=== PATIENT | male | born 1995 | race Hispanic/Latino ===

== ENCOUNTER 2020-04-06 12:13 | Emergency (ER) | payer MEDICAID ==
--- NOTE | 2020-04-06 12:53 | Emergency Department Report ---
ED Psych HPI - General Chief Complaint: Psych Stated Complaint: PYSCH EVALUATION Time Seen by Provider: 04/06/20 12:34 Source: EMS Mode of arrival: Stretcher - History of Present Illness Initial Comments: 25-year-old male states, "I just need to have my medicines changed". This is a patient coming from a skilled nursing with a bipolar disorder and "intermittent explosive disorder". He states that he was losing his temper today. However he denies any property or personal injury. He stated that he did not want to hurt himself or others. He thinks that his Risperdal is not agreeing with him. I mentioned Seroquel to him. He stated that he thinks that that medicine might work for him because he heard it works well for others. He states he has not been on this medicine prior. He does have a local PMD and psychiatrist. He presents with his medication administration record. The patient states that he did get his morning medicines. He does not report any precipitating event. He does not state that he is dissatisfied with his living situation. He has not suffering from hallucinosis or delusional thinking. He is cooperative with this provider on my encounter. MD Complaint: other Associated Psychiatric Symptoms: none History of same: Yes Quality: intermittent Improves With: none Worsens With: none Associated Symptoms: denies other symptoms Treatments Prior to Arrival: none ED Review of Systems ROS: Stated complaint: PYSCH EVALUATION Other details as noted in HPI Constitutional: denies: chills, fever Eyes: denies: eye pain, eye discharge, vision change ENT: denies: ear pain, throat pain Respiratory: denies: cough, shortness of breath, wheezing Cardiovascular: denies: chest pain, palpitations Endocrine: no symptoms reported Gastrointestinal: denies: abdominal pain, nausea, diarrhea Genitourinary: denies: urgency, dysuria Musculoskeletal: denies: back pain, joint swelling, arthralgia Skin: denies: rash, lesions Neurological: denies: headache, weakness, paresthesias Psychiatric: as per HPI. denies: anxiety, depression, auditory hallucinations, visual hallucinations, homicidal thoughts, suicidal thoughts Hematological/Lymphatic: denies: easy bleeding, easy bruising ED Past Medical Hx - Past Medical History Hx Psychiatric Treatment: Yes - Social History Substance Use Type: None ED Physical Exam - General Limitations: No Limitations General appearance: alert, in no apparent distress - Head Head exam: Present: atraumatic, normocephalic - Eye Eye exam: Present: other (O. S. Aphakic) - ENT ENT exam: Present: normal exam, mucous membranes moist - Neck Neck exam: Present: normal inspection. Absent: tenderness, meningismus - Respiratory Respiratory exam: Present: normal lung sounds bilaterally. Absent: respiratory distress - Cardiovascular Cardiovascular Exam: Present: regular rate, normal rhythm. Absent: systolic murmur, diastolic murmur, rubs, gallop - GI/Abdominal GI/Abdominal exam: Present: soft, normal bowel sounds. Absent: distended, tenderness, guarding, rebound - Rectal Rectal exam: Present: deferred - Extremities Exam Extremities exam: Present: normal inspection - Back Exam Back exam: Present: normal inspection - Neurological Exam Neurological exam: Present: alert, oriented X3, CN II-XII intact. Absent: motor sensory deficit - Psychiatric Psychiatric exam: Present: normal mood, flat affect - Skin Skin exam: Present: warm, dry, intact, normal color. Absent: rash ED Course Vital Signs 04/06/20 12:26 Temperature 97.8 F Pulse Rate 74 Respiratory 18 Rate Blood Pressure 132/72 [Right] O2 Sat by Pulse 100 Oximetry - Reevaluation(s) Reevaluation #1: I have asked the nursing staff to verify that no untoward behavior occurred in the skilled nursing. I do not think it is a problem with stopping his Respinol and beginning Seroquel. Unless there is further information to the contrary, the patient will be prescribed Seroquel and return to his skilled nursing setting to follow-up with his psychiatric provider. 04/06/20 12:54 Critical care attestation.: If time is entered above; I have spent that time in minutes in the direct care of this critically ill patient, excluding procedure time. ED Disposition Clinical Impression: History of impulsive behavior Bipolar disorder Qualifiers: Active/Remission status: currently active Current bipolar episode type: manic Current episode severity: moderate Qualified Code(s): F31.12 - Bipolar disorder, current episode manic without psychotic features, moderate Disposition: DC-01 TO HOME OR SELFCARE Is pt being admited?: No Does the pt Need Aspirin: No Condition: Stable Instructions: Bipolar Disorder (ED) Additional Instructions: May give 2 mg of Risperdal instead of 1 in the morning from now on. Consult with the patient's psychiatrist as soon as possible regarding follow-up care and further medication adjustments. Referrals: PRIMARY CARE, [Primary Care Provider] - 3-5 Days Time of Disposition: 13:18
[2020-04-06] MEDS ORDERED: risperiDONE 1 MG TAB PO ONE (13:16)
[2020-04-06 14:53] VITALS: BP 132/88
== END 2020-04-06 14:00 | disposition home or self-care (01) ==
LOC: ED 12:13
DX: F31.9 Bipolar disorder, unspecified (principal); Z86.59 Personal history of other mental and behavioral disorders
CPT/HCPCS: 99283